=== PATIENT | male | born 1955 | race Caucasian/White ===

== ENCOUNTER 2017-04-27 15:48 | Observation (INO) | payer BC ==
[~2017-04-27] VITALS: Ht 180.3 cm; Wt 100.0 kg
[~2017-04-27 15:48] MED LIST: CEFTIN 250250 MG/TAB PO; NO HOME MEDICATIONS; PHENERGAN W/CO120 M1 PO; ZITHROMAX Z PA250 MG PO
[2017-04-27] MEDS ORDERED: NEXIUM 20MG20 MG PO (16:58)
[2017-04-27 18:09] LABS: BASO % 0.3 % (0.0-2.0); EOS % 0.1 % (0-4.0); GRAN # 12.7 (1.4-6.5); GRAN % 85.8 % (42.2-75.2); HEMOGLOBIN 17.7 g/dl (13.5-18.0); LYMPH # 1.2 (1.2-3.4); MEAN CELL VOLUME 94 fl (80.0-100.0); MEAN CORPUSCULAR HEMOGLOBIN 32 pg (27.0-31.0); MEAN CORPUSCULAR HGB CONC 34 g/dl (33.0-37.0); MEAN PLATELET VOLUME 10.9 fl (7.4-10.4); MONO # 0.8 (0.1-0.6); MONO % 5.5 % (1.7-9.3); PLATELET COUNT 241 K/mm3 (130-400); RED BLOOD COUNT 5.51 M/mm3 (4.20-5.60); REDCELL DISTRIBUTION WIDTH-CV 13.9 % (11.5-14.5); WHITE BLOOD COUNT 14.8 K/mm3 (4.8-10.8)
[2017-04-27 18:14] LABS: PH 5 (5-8); SQUAMOUS EPITHELIAL None Seen /hpf; URINE APPEARANCE Hazy; URINE BACTERIA None Seen /hpf; URINE BILIRUBIN Negative (NEGATIVE); URINE BLOOD 3+ (NEGATIVE); URINE COLOR Yellow; URINE GLUCOSE Negative (NEGATIVE); URINE KETONE Negative (NEGATIVE); URINE RBC >50 /hpf; URINE UROBILINOGEN Negative (NEGATIVE)
[2017-04-27 18:38] LABS: ADJUSTED CALCIUM 9.3 mg/dL (8.4-10.2); ALBUMIN 4.6 gm/dL (3.5-5.0); BILIRUBIN,TOTAL 0.7 mg/dL (0.0-1.0); C-REACTIVE PROTEIN 0.6 mg/dL (0.0-0.9); CALCIUM 9.8 mg/dL (8.4-10.2); CREATININE, serum 0.92 mg/dL (0.66-1.25); POTASSIUM 4.4 mmol/L (3.4-5.0)
[2017-04-27 21:20] VITALS: BP 117/78; PULSE 98; TEMP 99.3
[2017-04-27 22:30] VITALS: BP 124/70; PULSE 97
[2017-04-27 22:45] VITALS: BP 115/65; PULSE 94
[2017-04-27 23:45] VITALS: PULSE 90
[2017-04-28] VITALS (9 sets, daily range): BP systolic 109–138; BP diastolic 68–85; PULSE 66–94; TEMP 97.8–98.6
[2017-04-28] MEDS ORDERED: EXCEDRIN TENSIO1 TAB PO (02:09)
== END 2017-04-28 19:48 | disposition home or self-care (01) ==
LOC: COL.ER 15:48 → SURG 20:32 → SDCO 20:32 → SURG 20:46 → SDCO 04-28 09:00 → SURG 04-28 09:01
PROVIDERS: Nurse Practitioner
DX: N13.2 Hydronephrosis with renal and ureteral calculous obstruction (principal); K21.9 Gastro-esophageal reflux disease without esophagitis; F17.210 Nicotine dependence, cigarettes, uncomplicated
CPT/HCPCS: OP; C1769; C2617; G0378; J0690; J1100; J1170; J1885; J1956; J2270; J2405; J2704; J3010; J7030; J7120; Q9967

== ENCOUNTER 2018-10-06 13:30 | Inpatient (IN) | payer BC ==
[~2018-10-06] VITALS: Ht 180.3 cm; Wt 91.4 kg
[2018-10-06] VITALS (168 sets, daily range): BP systolic 98–122; BP diastolic 77–83; PULSE 79–89; TEMP 97–98.2; O2SAT 91–98
[~2018-10-06 13:30] MED LIST changes: +EXCEDRIN TENSIO1 TAB PO; +NEXIUM 20MG20 MG PO
[2018-10-06 13:50] LABS: BASO % 0.3 % (0.0-2.0); EOS # 0.1 (0.0-0.7); EOS % 1.4 % (0-4.0); GRAN # 6.2 (1.4-6.5); GRAN % 63.4 % (42.2-75.2); LYMPH # 2.8 (1.2-3.4); LYMPH % 28.6 % (20.0-51.0); MEAN CELL VOLUME 92 fl (80.0-100.0); MEAN CORPUSCULAR HGB CONC 35 g/dl (33.0-37.0); MEAN PLATELET VOLUME 10.4 fl (7.4-10.4); MONO # 0.6 (0.1-0.6); MONO % 5.9 % (1.7-9.3); PLATELET COUNT 250 K/mm3 (130-400); REDCELL DISTRIBUTION WIDTH-CV 13.4 % (11.5-14.5)
[2018-10-06 13:53] LABS: HEMATOCRIT 52.5 % (42.0-52.0); HEMOGLOBIN 18.1 g/dl (13.5-18.0); MEAN CORPUSCULAR HEMOGLOBIN 32 pg (27.0-31.0)
[2018-10-06 13:58] LABS: PROTHROMBIN TIME 11.2 SECONDS (9.7-12.8)
[2018-10-06 14:00] LABS: ALBUMIN 4.5 gm/dL (3.5-5.0); BILIRUBIN,TOTAL 0.7 mg/dL (0.0-1.0); CALCIUM 9.5 mg/dL (8.4-10.2); CREATININE, serum 0.63 mg/dL (0.66-1.25); PARTIAL THROMBOPLASTIN TIME 31.2 SECONDS (26.0-37.0); POTASSIUM 4.2 mmol/L (3.4-5.0)
[2018-10-06 14:21] LABS: TROPONIN-I 0.036 ng/mL (0.000-0.035)
[2018-10-06 16:56] LABS: CHOLESTEROL RISK RATIO 10.7
--- NOTE | 2018-10-06 17:54 | NUR ---
REPORT RECEIVED FROM PAUL MARSHALL IN [employer]. PATIENT WILL BE ARRIVING FROM [facility] [facility] SHORTLY.
--- NOTE | 2018-10-06 19:20 | NUR ---
Bedside report given to PAUL Lowry. Plan is to send patient to [facility] for further cardiac workup. TR band in place to right radial site with 13 cc air in balloon. Care turned over at this time.
--- NOTE | 2018-10-06 19:50 | NUR ---
Patient assessment completed and charted at this time. Patient resting in bed, no issues to report at this time. Patient notified of ETA of transportation to [facility]. Will continue to monitor and assess.
--- NOTE | 2018-10-06 21:10 | NUR ---
Report called to PAUL Garcia at [facility] at this time.
--- NOTE | 2018-10-06 21:10 | NUR ---
Patient escorted by [facility] for transportation to [facility] at this time. Patient has no further questions, passing off care of patient at this time.
== END 2018-10-06 21:10 | disposition short-term general hospital (02) | DRG 282 ==
LOC: COL.ER 13:30 → ICU 15:00
PROVIDERS: Emergency Medicine; Internal Medicine Cardiovascular Disease; ADMIT Family Medicine
PROC: B2111ZZ Fluoroscopy of Multiple Coronary Arteries using Low Osmolar Contrast (ICD-10-PCS; principal; 2018-10-06)
PROC: B2151ZZ Fluoroscopy of Left Heart using Low Osmolar Contrast (ICD-10-PCS; 2018-10-06)
PROC: 4A023N7 Measurement of Cardiac Sampling and Pressure, Left Heart, Percutaneous Approach (ICD-10-PCS; 2018-10-06)
DX: I21.4 Non-ST elevation (NSTEMI) myocardial infarction (principal); I25.10 Atherosclerotic heart disease of native coronary artery without angina pectoris; F17.210 Nicotine dependence, cigarettes, uncomplicated; K21.9 Gastro-esophageal reflux disease without esophagitis; E78.5 Hyperlipidemia, unspecified
CPT/HCPCS: 99223-AI; C1769; C1887; J1200; J1644; J2250; J3010; J7030

== ENCOUNTER 2018-10-15 09:43 | Emergency (ER) | payer BC ==
[~2018-10-15] VITALS: Ht 180.3 cm; Wt 94.5 kg
[2018-10-15 09:54] VITALS: TEMP 98.6
[2018-10-15] MEDS ORDERED: ASPIRIN 81M81 MG/TA2 PO (10:27)
[2018-10-15] MEDS ORDERED: LIPITOR 40MG TA40 MG PO (10:27)
[2018-10-15] MEDS ORDERED: CORDARONE200 MG/TAB PO (10:27)
[2018-10-15] MEDS ORDERED: KAPSPARGO SPRIN25 MG PO (10:28)
[2018-10-15] MEDS ORDERED: ULTRAM 50MG TAB50 MG PO (10:28)
[2018-10-15 12:21] VITALS: BP 99/65; PULSE 73
== END 2018-10-15 12:23 | disposition home or self-care (01) ==
LOC: COL.ER 09:43
DX: S80.12XA Contusion of left lower leg, initial encounter (principal); F17.210 Nicotine dependence, cigarettes, uncomplicated; Z95.1 Presence of aortocoronary bypass graft; Z79.82 Long term (current) use of aspirin; X58.XXXA Exposure to other specified factors, initial encounter

== ENCOUNTER → 2022-04-28 | Outpatient (CLI) | payer MEDICARE ==
[~2022-04-28] MED LIST changes: +ASPIRIN 81M81 MG/TA2 PO; +CORDARONE200 MG/TAB PO; +KAPSPARGO SPRIN25 MG PO; +LIPITOR 40MG TA40 MG PO; +ULTRAM 50MG TAB50 MG PO
== END ==
LOC: COL.RAD 14:17
DX: Z12.2 Encounter for screening for malignant neoplasm of respiratory organs (principal); K80.20 Calculus of gallbladder without cholecystitis without obstruction; F17.200 Nicotine dependence, unspecified, uncomplicated; Z95.1 Presence of aortocoronary bypass graft; Z98.890 Other specified postprocedural states

== ENCOUNTER 2023-12-01 14:30 | Inpatient (IN) | payer MEDICARE ==
[~2023-12-01] VITALS: Ht 180.3 cm; Wt 127.2 kg
[2023-12-01] VITALS (9 sets, daily range): BP systolic 105–138; BP diastolic 49–69; PULSE 106–117; TEMP 98
--- NOTE | 2023-12-01 14:00 | NUR ---
PT UP TO FLOOR AT THIS TIME. VITALS STABLE, A/O X4, STEADY GAIT AROUND ROOM. PT RATING DISCOMFORT IN RLQ 09/01. NO NEEDS AT THIS TIME. WILL CONTINUE TO MONITOR.
[2023-12-01] MEDS ORDERED: LR 1,000 ML IV SCH ×2 (15:00→17:30)
--- NOTE | 2023-12-01 16:00 | NUR ---
PT UP TO FLOOR AT THIS TIME. HOSPITALIST AND DR. AVALOS NOTIFIED OF PT ARRIVAL.
[2023-12-01] MEDS ORDERED: PROAIR HFA0.09 MG/AC IH (16:30)
[2023-12-01] MEDS ORDERED: ASPIRIN 81M81 MG/TA2 PO (16:33)
[2023-12-01] MEDS ORDERED: SYNTHROID0.05 MG/TA PO (16:35)
[2023-12-01] MEDS ORDERED: GLUCOTROL XL10 MG PO (16:35)
[2023-12-01] MEDS ORDERED: LANTUS SOLOS100 U/ML SQ (16:35)
[2023-12-01] MEDS ORDERED: fentaNYL 50 MCG/ML 5 ML VIAL ONE (16:36)
[2023-12-01] MEDS ORDERED: Lidocaine PF 2% (20 MG/ML) 5 ML VIAL ONE (16:36)
[2023-12-01] MEDS ORDERED: ZESTRIL 5MG5 MG PO (16:36)
[2023-12-01] MEDS ORDERED: Rocuronium 50 MG/5 ML Multi-Dose VIAL ONE (16:36)
[2023-12-01] MEDS ORDERED: LOPRESSOR 225 MG/TAB PO (16:37)
[2023-12-01] MEDS ORDERED: GLUCOPHAGE XR500 M1 PO (16:37)
[2023-12-01] MEDS ORDERED: SINGULAIR 110 MG/TAB PO (16:38)
[2023-12-01] MEDS ORDERED: NITROSTAT0.4 MG/TAB SL (16:39)
[2023-12-01] MEDS ORDERED: RYBELSUS3 MG PO (16:40)
[2023-12-01] MEDS ORDERED: DEPO-TESTOS100 MG/ML IM (16:41)
[2023-12-01] MEDS ORDERED: Indocyanine Green 6.25 MG in Water For Injection,Sterile 1.25 ML IV ONE (16:45)
[2023-12-01] MEDS ORDERED: Pantoprazole 40 MG in NS 10 ML IV SCH (17:18)
[2023-12-01] MEDS ORDERED: hydrALAZINE 20 MG/ML 1 ML VIAL IV PRN ×2 (17:30→18:30)
[2023-12-01] MEDS ORDERED: Morphine 4 MG/ML VIAL IV PRN (17:30)
[2023-12-01] MEDS ORDERED: Albuterol 0.042% Neb Soln 1.25 MG/3 ML UD IH PRN (17:30)
[2023-12-01] MEDS ORDERED: Ondansetron 4 MG/2 ML VIAL IV PRN ×3 (17:30→19:00)
[2023-12-01] MEDS ORDERED: Ondansetron 4 MG/2 ML VIAL ONE (18:11)
[2023-12-01] MEDS ORDERED: HYDROmorphone 1 MG/1 ML SYRINGE [PACU/SDC ONLY] IV PRN (18:30)
[2023-12-01] MEDS ORDERED: fentaNYL 50 MCG/ML 1 ML SYRINGE/VIAL [PACU/SDC ONLY] IV PRN (18:30)
[2023-12-01] MEDS ORDERED: Meperidine 50 MG/ML 1 ML VIAL IV PRN (18:30)
[2023-12-01] MEDS ORDERED: Topical Skin Adhesive 1 EACH (1 ML) TOP ONE (18:58)
[2023-12-01] MEDS ORDERED: Acetaminophen 325 MG TAB PO PRN (19:00)
--- NOTE | 2023-12-01 19:03 | NUR ---
report received from dari larsen. pt down in the OR.
[2023-12-01] MEDS ORDERED: Levalbuterol Neb Soln 1.25 MG/3 ML UD IH ONE (19:45)
--- NOTE | 2023-12-01 19:59 | NUR ---
RT ADVISED PACU STAFF PATIENT MAY BECOME TACHYCARDIA AFTER BREATHING TREATMENT. PACU WOULD STILL LIKE TOO GIVE BREATHING TREATMENT 1.25 XOPENEX
[2023-12-01] MEDS ORDERED: Insulin Lispro (HumaLOG) SQ SCH (20:00)
--- NOTE | 2023-12-01 21:03 | NUR ---
shift assessment complete, see documentation. pt tolerated hs meds well. iv abx started. pt started on post op vital signs. pt denies pain. call light in reach. all needs met at this time.
[2023-12-02] VITALS (8 sets, daily range): BP systolic 112–127; BP diastolic 58–67; PULSE 98–106; TEMP 98–98.5
--- NOTE | 2023-12-02 00:09 | NUR ---
pt reporting increased abd pain rated 4/10. prn norco administered per orders. call light in reach. all needs met at this time.
--- NOTE | 2023-12-02 06:14 | NUR ---
pt reporting migraine. prn tylenol administered per orders. call light in reach. all needs met at this time.
[2023-12-02 06:48] LABS: BASO % 0.2 % (0.0-2.0); EOS % 0.1 % (0.0-4.0); GRAN # 12.4 K/mm3 (1.4-6.5); GRAN % 81.1 % (42.2-75.2); HEMATOCRIT 46.1 % (42.0-52.0); LYMPH # 1.6 K/mm3 (1.2-3.4); LYMPH % 10.5 % (20.0-51.0); MEAN CELL VOLUME 83 fl (80.0-100.0); MEAN CORPUSCULAR HEMOGLOBIN 25 pg (27-31); MEAN CORPUSCULAR HGB CONC 30 g/dl (33.0-37.0); MEAN PLATELET VOLUME 11.3 fl (7.4-10.4); MONO # 1.1 K/mm3 (0.1-0.6); MONO % 7.5 % (1.7-9.3); PLATELET COUNT 206 K/mm3 (130-400); RED BLOOD COUNT 5.53 M/mm3 (4.20-5.60); REDCELL DISTRIBUTION WIDTH-CV 17.9 % (11.5-14.5)
[2023-12-02 06:58] LABS: CALCIUM 8.3 mg/dL (8.4-10.2); CHOLESTEROL RISK RATIO 3.8; CREATININE, serum 1.13 mg/dL (0.72-1.25); POTASSIUM 3.6 mEq/L (3.5-4.5)
[2023-12-02 07:05] LABS: MAGNESIUM 1.5 mg/dL (1.6-2.6)
[2023-12-02] MEDS ORDERED: Glucagon 1 MG VIAL IM PRN (07:15)
[2023-12-02] MEDS ORDERED: Dextrose (Glucose) 15 GM (4 x 3.75 GM) Chewable TABLET PACK PO PRN (07:15)
[2023-12-02] MEDS ORDERED: Dextrose 50% Water 25 GM/50 ML SYRINGE IV PRN (07:15)
--- NOTE | 2023-12-02 10:00 | NUR ---
PT RESTING IN BED WITH NO PAIN, STEADY GAIT, AND INCISION CLEAN AND DRY TO SKIN GLUE. TOLERATING DEIT WELL AND PASSING GAS. PT EDUCATED ON ERAS PRECAUTIONS AND WALKING THE HALLS. PLANNING ON DISCHARGE LATER TODAY. WILL CONTINUE TO MONITOR.
[2023-12-02] MEDS ORDERED: Magnesium Sulfate 4% 50 ML IV ONE (10:30)
[2023-12-02] MEDS ORDERED: NORCO 325 MG-51 TAB PO (10:31)
[2023-12-02] MEDS ORDERED: AMOXICILLIN 8751 TAB PO (10:31)
--- NOTE | 2023-12-02 11:42 | NUR ---
D: Initial visit: Branch Library Clerk stopped by room on rounds. Pt was resting and content. 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 Pt appreciated the visit. P: Branch Library Clerk informed pt that if he needed anything before he left to let his nurse know. Branch Library Clerk will follow up as needed.
--- NOTE | 2023-12-02 14:10 | NUR ---
[employer]AL[employer] INSTRUCTIONS PROVIDED TO PT AND FAMILY. DISCUSSED FOLLOW UP APPOINTMENTS, NEW MEDICATION, AND SIGNS OF INFECTION. DR CORDOVA AT BEDSIDE TO DISCUSS DISCONTINUED MEDICATIONS. QUESTIONS ANSWERED. IV REMOVED. PT AND FAMILY ESCORTED OUT OF BUILDING AT THIS TIME.
== END 2023-12-02 14:10 | disposition home or self-care (01) | DRG 854 ==
LOC: EDSTATUS 14:30 → SDCO 14:30 → SURG 14:30
PROVIDERS: Nurse Practitioner Family; Surgery; ADMIT Internal Medicine
PROC: 8E0W4CZ Robotic Assisted Procedure of Trunk Region, Percutaneous Endoscopic Approach (ICD-10-PCS; 2023-12-01)
PROC: 0FT44ZZ Resection of Gallbladder, Percutaneous Endoscopic Approach (ICD-10-PCS; principal; 2023-12-01 14:30)
DX: A41.9 Sepsis, unspecified organism (principal); K80.00 Calculus of gallbladder with acute cholecystitis without obstruction; I25.10 Atherosclerotic heart disease of native coronary artery without angina pectoris; K21.9 Gastro-esophageal reflux disease without esophagitis; E78.00 Pure hypercholesterolemia, unspecified; E03.9 Hypothyroidism, unspecified; I10 Essential (primary) hypertension; G47.33 Obstructive sleep apnea (adult) (pediatric); I48.91 Unspecified atrial fibrillation; E66.01 Morbid (severe) obesity due to excess calories; E11.9 Type 2 diabetes mellitus without complications; I25.2 Old myocardial infarction; Z95.1 Presence of aortocoronary bypass graft; Z87.891 Personal history of nicotine dependence; Z79.899 Other long term (current) drug therapy; Z79.84 Long term (current) use of oral hypoglycemic drugs; Z79.82 Long term (current) use of aspirin; Z79.890 Hormone replacement therapy; Z79.4 Long term (current) use of insulin; Z99.89 Dependence on other enabling machines and devices; Z68.39 Body mass index [BMI] 39.0-39.9, adult
CPT/HCPCS: C9113; J0690; J1815; J2405; J2543; J2704; J3010; J3475; J7120

== ENCOUNTER → 2024-05-26 | Outpatient (CLI) | payer MEDICARE ==
[~2024-05-26] MED LIST changes: +AMOXICILLIN 8751 TAB PO; +DEPO-TESTOS100 MG/ML IM; +GLUCOPHAGE XR500 M1 PO; +GLUCOTROL XL10 MG PO; +LANTUS SOLOS100 U/ML SQ; +LOPRESSOR 225 MG/TAB PO; +NITROSTAT0.4 MG/TAB SL; +NORCO 325 MG-51 TAB PO; +PROAIR HFA0.09 MG/AC IH; +RYBELSUS3 MG PO; +SINGULAIR 110 MG/TAB PO; +SYNTHROID0.05 MG/TA PO; +ZESTRIL 5MG5 MG PO
== END ==
LOC: COL.RAD 13:49
DX: Z12.2 Encounter for screening for malignant neoplasm of respiratory organs (principal); Z87.891 Personal history of nicotine dependence